=== PATIENT | female | born 1955 | race Caucasian/White ===

== ENCOUNTER 2017-03-15 20:18 | Outpatient (CLI) | payer OTHER | END 2017-03-15 20:19 | disposition critical access hospital (66) | LOC: EMS 20:18 | PROVIDERS: ATTEND Surgery | DX: R53.81 Other malaise (principal) | CPT/HCPCS: A0425; A0427 ==

== ENCOUNTER 2017-03-15 20:49 | Inpatient (IN) | payer OTHER ==
[2017-03-15] MEDS ORDERED: SODIUM CHLORIDE 0.9% 1,000 ML IV ONE ×3 (20:55→21:37)
[2017-03-15] MEDS ORDERED: ACETAMINOPHEN 325 MG TABLET PO STA (20:55)
[2017-03-15] MEDS ORDERED: ACETAMINOPHEN 325 MG TABLET PO ONE (21:09)
[2017-03-15] MEDS ORDERED: SODIUM CHLORIDE 0.9% 500 ML IV ONE (22:15)
[2017-03-15] MEDS ORDERED: ZOLPIDEM 5 MG TABLET PO PRN (22:15)
[2017-03-15] MEDS ORDERED: PROCHLORPERAZINE 10 MG/2 ML VIAL IVP PRN (22:15)
[2017-03-15] MEDS ORDERED: oxyCODONE 5 MG TABLET PO PRN ×2 (22:15)
[2017-03-15] MEDS ORDERED: IBUPROFEN 400 MG TABLET PO PRN (22:15)
[2017-03-15] MEDS ORDERED: VANCOMYCIN PER PHARMACY 1 GM in SODIUM CHLORIDE 0.9% 250 ML IV SCH (23:00)
[2017-03-16] MEDS ORDERED: VANCOMYCIN INJ 1 GM in SODIUM CHLORIDE 0.9% 250 ML IV SCH ×2
[2017-03-16] MEDS: ACETAMINOPHEN 325 MG TABLET PO PRN (00:30)
[2017-03-16] MEDS: BACLOFEN 10 MG TABLET PO SCH (00:31)
[2017-03-16] MEDS: PIPERACILLIN/TAZOBACTAM 3.375 GM in SODIUM CHLORIDE 0.9% MINIBAG 100 ML IV SCH ×5 (00:38→23:26)
[2017-03-16] MEDS: SODIUM CHLORIDE 0.9% 1,000 ML IV SCH ×3 (00:42→16:32)
[2017-03-16] MEDS ORDERED: SODIUM CHLORIDE 0.9% 1,000 ML IV ONE (02:01)
[2017-03-16] MEDS ORDERED: SODIUM CHLORIDE 0.9% 1,000 ML IV SCH (03:20)
[2017-03-16] MEDS ORDERED: ACETAMINOPHEN 325 MG TABLET PO STA (03:54)
[2017-03-16] MEDS: SODIUM CHLORIDE FLUSH 0.9% 10 ML SYRINGE IVP SCH ×3 (06:08→21:50)
[2017-03-16] MEDS: PANTOPRAZOLE 40 MG TABLET PO SCH (06:18)
[2017-03-16] MEDS: CIPROFLOXACIN 200 MG/100 ML 100 ML IV SCH ×2 (08:43→19:50)
[2017-03-16] MEDS: POLYETHYLENE GLYCOL 3350 17 GM PACKET PO SCH (08:43)
[2017-03-16] MEDS: SACCHAROMYCES BOULARDII 250 MG CAPSULE PO SCH ×2 (08:43→16:22)
[2017-03-16] MEDS ORDERED: ceFAZolin 1 GM VIAL ONE (11:12)
[2017-03-16] MEDS ORDERED: fentaNYL 100 MCG/2 ML VIAL IVP ONE (11:55)
[2017-03-16] MEDS ORDERED: ONDANSETRON 4 MG/2 ML VIAL IVP ONE (11:55)
[2017-03-16] MEDS ORDERED: GLYCOPYRROLATE 1 MG/5 ML VIAL IVP ONE (11:55)
[2017-03-16] MEDS ORDERED: ROCURONIUM 50 MG/5 ML VIAL IVP ONE (11:55)
[2017-03-16] MEDS ORDERED: LIDOCAINE-PF 2% 10 ML AMP SUBQ ONE (11:55)
[2017-03-16] MEDS ORDERED: PROPOFOL 200 MG/20 ML VIAL IVP ONE (11:55)
[2017-03-16] MEDS ORDERED: DEXAMETHASONE 4 MG/ML VIAL IVP ONE (11:55)
[2017-03-16] MEDS ORDERED: MIDAZOLAM 2 MG/2 ML VIAL IVP ONE (11:55)
[2017-03-16] MEDS ORDERED: ePHEDrine 50 MG/ML VIAL IVP ONE (11:55)
[2017-03-16] MEDS ORDERED: NEOSTIGMINE 1 MG/1 ML 10 ML MDV IVP ONE (11:55)
[2017-03-16] MEDS ORDERED: SUCCINYLCHOLINE 200 MG/10 ML VIAL IVP ONE (11:55)
[2017-03-16] MEDS ORDERED: LACTATED RINGERS 1,000 ML IV ONE ×2 (13:12)
[2017-03-16] MEDS ORDERED: BUPIVACAINE 0.5%-EPI 1:200000 PF 30 ML VIAL SUBQ ONE ×2 (13:12→14:25)
[2017-03-16] MEDS: MORPHINE 2 MG/ML SYRINGE IVP PRN (18:48)
[2017-03-17] MEDS: SODIUM CHLORIDE 0.9% 1,000 ML IV SCH (03:56)
[2017-03-17] MEDS: MORPHINE 2 MG/ML SYRINGE IVP PRN ×2 (04:55→19:39)
[2017-03-17] MEDS: SODIUM CHLORIDE FLUSH 0.9% 10 ML SYRINGE IVP SCH ×3 (05:28→20:46)
[2017-03-17] MEDS: PANTOPRAZOLE 40 MG TABLET PO SCH (05:28)
[2017-03-17] MEDS: PIPERACILLIN/TAZOBACTAM 3.375 GM in SODIUM CHLORIDE 0.9% MINIBAG 100 ML IV SCH ×3 (05:28→17:44)
[2017-03-17] MEDS: CIPROFLOXACIN 200 MG/100 ML 100 ML IV SCH ×2 (08:21→19:47)
[2017-03-17] MEDS: SACCHAROMYCES BOULARDII 250 MG CAPSULE PO SCH ×2 (08:25→17:41)
[2017-03-17] MEDS: POLYETHYLENE GLYCOL 3350 17 GM PACKET PO SCH (08:25)
[2017-03-17] MEDS: DEXTROSE 5%-0.45% NACL 1,000 ML IV SCH ×2 (08:51→20:45)
[2017-03-17] MEDS: ACETAMINOPHEN 325 MG TABLET PO PRN (10:28)
[2017-03-17] MEDS ORDERED: DEXTROSE 50% ABBOJECT 25 GM/50 ML SYRINGE ONE (10:46)
[2017-03-17] MEDS ORDERED: DEXTROSE 50% ABBOJECT 25 GM/50 ML SYRINGE IVP ONE (11:04)
[2017-03-17] MEDS: A & D OINTMENT 5 GM PACKET TOP PRN (12:12)
[2017-03-17] MEDS: ACETAMINOPHEN 1,000 MG/100 ML 100 ML IV SCH ×2 (17:10→23:08)
[2017-03-17] MEDS: BACLOFEN 10 MG TABLET PO SCH (20:45)
[2017-03-18] MEDS: PIPERACILLIN/TAZOBACTAM 2.25 GM in SODIUM CHLORIDE 0.9% MINIBAG 100 ML IV SCH ×2 (00:14→05:33)
[2017-03-18] MEDS: SODIUM CHLORIDE FLUSH 0.9% 10 ML SYRINGE IVP SCH ×3 (05:21→21:03)
[2017-03-18] MEDS: PANTOPRAZOLE 40 MG TABLET PO SCH (05:21)
[2017-03-18] MEDS: ACETAMINOPHEN 1,000 MG/100 ML 100 ML IV SCH ×3 (05:45→21:03)
[2017-03-18] MEDS: CIPROFLOXACIN 200 MG/100 ML 100 ML IV SCH (08:08)
[2017-03-18] MEDS: ONDANSETRON 4 MG/2 ML VIAL IVP PRN (08:29)
[2017-03-18] MEDS: SODIUM CHLORIDE FLUSH 0.9% 10 ML SYRINGE IVP PRN ×5 (08:37→15:49)
[2017-03-18] MEDS: CEFEPIME 1 GM in SODIUM CHLORIDE 0.9% MINIBAG 100 ML IV SCH (10:00)
[2017-03-18] MEDS: POLYETHYLENE GLYCOL 3350 17 GM PACKET PO SCH (10:05)
[2017-03-18] MEDS: SACCHAROMYCES BOULARDII 250 MG CAPSULE PO SCH ×2 (10:05→17:20)
[2017-03-18] MEDS: MORPHINE 2 MG/ML SYRINGE IVP PRN (10:48)
[2017-03-18] MEDS ORDERED: SODIUM CHLORIDE 0.9% 500 ML IV PRN (15:05)
[2017-03-18] MEDS ORDERED: SODIUM CHLORIDE FLUSH 0.9% 10 ML SYRINGE IVP PRN (15:05)
[2017-03-18] MEDS: VANCOMYCIN INJ 1 GM in SODIUM CHLORIDE 0.9% 250 ML IV SCH (15:14)
[2017-03-18] MEDS: DEXTROSE 5%-0.45% NACL 1,000 ML IV SCH ×2 (15:15→20:26)
[2017-03-18] MEDS: BACLOFEN 10 MG TABLET PO SCH (21:03)
[2017-03-19] MEDS: MORPHINE 2 MG/ML SYRINGE IVP PRN ×2 (02:05→08:17)
[2017-03-19] MEDS: ACETAMINOPHEN 1,000 MG/100 ML 100 ML IV SCH ×4 (02:55→20:41)
[2017-03-19] MEDS: DEXTROSE 5%-0.45% NACL 1,000 ML IV SCH ×3 (02:55→23:03)
[2017-03-19] MEDS: SODIUM CHLORIDE FLUSH 0.9% 10 ML SYRINGE IVP SCH ×3 (06:17→21:43)
[2017-03-19] MEDS: PANTOPRAZOLE 40 MG TABLET PO SCH (06:17)
[2017-03-19] MEDS: SACCHAROMYCES BOULARDII 250 MG CAPSULE PO SCH ×2 (08:13→17:44)
[2017-03-19] MEDS: CEFEPIME 1 GM in SODIUM CHLORIDE 0.9% MINIBAG 100 ML IV SCH (08:38)
[2017-03-19] MEDS: POLYETHYLENE GLYCOL 3350 17 GM PACKET PO SCH (14:14)
[2017-03-19] MEDS ORDERED: BACLOFEN 10 MG TABLET PO SCH (21:00)
[2017-03-19] MEDS: BACLOFEN 10 MG TABLET PO SCH (21:43)
[2017-03-20] MEDS: MORPHINE 2 MG/ML SYRINGE IVP PRN ×2 (00:48→20:00)
[2017-03-20] MEDS: ACETAMINOPHEN 1,000 MG/100 ML 100 ML IV SCH ×4 (03:46→21:07)
[2017-03-20] MEDS: SODIUM CHLORIDE FLUSH 0.9% 10 ML SYRINGE IVP SCH ×3 (06:00→21:00)
[2017-03-20] MEDS: PANTOPRAZOLE 40 MG TABLET PO SCH (06:00)
[2017-03-20] MEDS: SACCHAROMYCES BOULARDII 250 MG CAPSULE PO SCH ×2 (08:54→18:29)
[2017-03-20] MEDS: CEFEPIME 1 GM in SODIUM CHLORIDE 0.9% MINIBAG 100 ML IV SCH (09:18)
[2017-03-20] MEDS: MAGIC MOUTHWASH 120 ML BOTTLE PO PRN (10:13)
[2017-03-20] MEDS: DEXTROSE 5%-0.45% NACL 1,000 ML IV SCH ×2 (12:16→23:59)
[2017-03-20] MEDS ORDERED: MIN OIL/DIMETHICON/COCONUT OIL 92 GM TUBE TOP ONE (12:53)
[2017-03-20] MEDS: POLYETHYLENE GLYCOL 3350 17 GM PACKET PO SCH (15:43)
[2017-03-20] MEDS: VANCOMYCIN INJ 1 GM in SODIUM CHLORIDE 0.9% 250 ML IV SCH (16:27)
[2017-03-20] MEDS: ONDANSETRON 4 MG/2 ML VIAL IVP PRN (19:56)
[2017-03-20] MEDS ORDERED: MAGNESIUM SULFATE 2 GRAM 50 ML IV SCH (20:29)
[2017-03-20] MEDS: BACLOFEN 10 MG TABLET PO SCH (21:08)
[2017-03-21] MEDS: guaiFENesin/CODEINE 5 ML UDC PO PRN (02:29)
[2017-03-21] MEDS: ACETAMINOPHEN 1,000 MG/100 ML 100 ML IV SCH ×4 (02:35→20:42)
[2017-03-21] MEDS: MORPHINE 2 MG/ML SYRINGE IVP PRN ×2 (02:41→23:46)
[2017-03-21] MEDS: DEXTROSE 5%-0.45% NACL 1,000 ML IV SCH ×3 (03:47→22:53)
[2017-03-21] MEDS: SODIUM CHLORIDE FLUSH 0.9% 10 ML SYRINGE IVP SCH ×3 (07:01→21:41)
[2017-03-21] MEDS: PANTOPRAZOLE 40 MG TABLET PO SCH (07:02)
[2017-03-21] MEDS: SODIUM CHLORIDE FLUSH 0.9% 10 ML SYRINGE IVP PRN ×2 (07:02→14:47)
[2017-03-21] MEDS: ONDANSETRON 4 MG/2 ML VIAL IVP PRN ×2 (08:19→20:42)
[2017-03-21] MEDS: SACCHAROMYCES BOULARDII 250 MG CAPSULE PO SCH ×2 (08:20→18:16)
[2017-03-21] MEDS: CEFEPIME 1 GM in SODIUM CHLORIDE 0.9% MINIBAG 100 ML IV SCH (08:36)
[2017-03-21] MEDS: POLYETHYLENE GLYCOL 3350 17 GM PACKET PO SCH (08:37)
[2017-03-21] MEDS: MAGIC MOUTHWASH 120 ML BOTTLE PO PRN (13:31)
[2017-03-21] MEDS ORDERED: PROCHLORPERAZINE 10 MG/2 ML VIAL IVP PRN (13:39)
[2017-03-21] MEDS: ACYCLOVIR INJ 500 MG in SODIUM CHLORIDE 0.9% 250 ML IV SCH (15:36)
[2017-03-21] MEDS: BACLOFEN 10 MG TABLET PO SCH (21:36)
[2017-03-22] MEDS: SODIUM CHLORIDE FLUSH 0.9% 10 ML SYRINGE IVP SCH ×3 (01:11→21:09)
[2017-03-22] MEDS: ACETAMINOPHEN 1,000 MG/100 ML 100 ML IV SCH (03:08)
[2017-03-22] MEDS: MORPHINE 2 MG/ML SYRINGE IVP PRN ×2 (03:08→22:47)
[2017-03-22] MEDS: PANTOPRAZOLE 40 MG TABLET PO SCH (06:30)
[2017-03-22] MEDS: SODIUM CHLORIDE FLUSH 0.9% 10 ML SYRINGE IVP PRN ×3 (07:38→21:09)
[2017-03-22] MEDS: ONDANSETRON 4 MG/2 ML VIAL IVP PRN ×3 (07:38→17:12)
[2017-03-22] MEDS: NS W/20 MEQ KCL 1,000 ML IV SCH ×2 (08:18→23:57)
[2017-03-22] MEDS: SACCHAROMYCES BOULARDII 250 MG CAPSULE PO SCH ×2 (08:26→17:35)
[2017-03-22] MEDS: CEFEPIME 1 GM in SODIUM CHLORIDE 0.9% MINIBAG 100 ML IV SCH (08:26)
[2017-03-22] MEDS: POLYETHYLENE GLYCOL 3350 17 GM PACKET PO SCH (10:28)
[2017-03-22] MEDS: VANCOMYCIN INJ 1 GM in SODIUM CHLORIDE 0.9% 250 ML IV SCH (14:34)
[2017-03-22] MEDS: LEVOTHYROXINE 25 MCG TABLET PO SCH (14:34)
[2017-03-22] MEDS: ACYCLOVIR INJ 500 MG in SODIUM CHLORIDE 0.9% 250 ML IV SCH (16:17)
[2017-03-22] MEDS ORDERED: FLU VACCINE QS 2016-17 60 MCG/0.5 ML SYRINGE IM ONE (19:35)
[2017-03-22] MEDS: BACLOFEN 10 MG TABLET PO SCH (20:34)
[2017-03-22] MEDS: ACETAMINOPHEN 325 MG TABLET PO PRN (20:34)
[2017-03-22] MEDS: guaiFENesin/CODEINE 5 ML UDC PO PRN (21:08)
[2017-03-23] MEDS: MORPHINE 2 MG/ML SYRINGE IVP PRN (04:50)
[2017-03-23] MEDS: LEVOTHYROXINE 25 MCG TABLET PO SCH (06:48)
[2017-03-23] MEDS: PANTOPRAZOLE 40 MG TABLET PO SCH (06:48)
[2017-03-23] MEDS: SODIUM CHLORIDE FLUSH 0.9% 10 ML SYRINGE IVP SCH ×3 (06:49→22:21)
[2017-03-23] MEDS: SODIUM CHLORIDE FLUSH 0.9% 10 ML SYRINGE IVP PRN (06:49)
[2017-03-23] MEDS: POLYETHYLENE GLYCOL 3350 17 GM PACKET PO SCH (08:00)
[2017-03-23] MEDS: CEFEPIME 1 GM in SODIUM CHLORIDE 0.9% MINIBAG 100 ML IV SCH (08:14)
[2017-03-23] MEDS: MAGIC MOUTHWASH 120 ML BOTTLE PO PRN (08:54)
[2017-03-23] MEDS: ONDANSETRON 4 MG/2 ML VIAL IVP PRN ×3 (08:54→17:03)
[2017-03-23] MEDS: SACCHAROMYCES BOULARDII 250 MG CAPSULE PO SCH ×2 (08:54→16:59)
[2017-03-23] MEDS: ACETAMINOPHEN 325 MG TABLET PO PRN (10:01)
[2017-03-23] MEDS: ACYCLOVIR INJ 500 MG in SODIUM CHLORIDE 0.9% 250 ML IV SCH (16:59)
[2017-03-23] MEDS: BACLOFEN 10 MG TABLET PO SCH (22:19)
[2017-03-24] MEDS: MORPHINE 2 MG/ML SYRINGE IVP PRN (00:38)
[2017-03-24] MEDS: SODIUM CHLORIDE FLUSH 0.9% 10 ML SYRINGE IVP PRN (00:39)
[2017-03-24] MEDS: ACYCLOVIR INJ 500 MG in SODIUM CHLORIDE 0.9% 250 ML IV SCH ×2 (03:36→16:15)
[2017-03-24] MEDS: SODIUM CHLORIDE FLUSH 0.9% 10 ML SYRINGE IVP SCH ×3 (05:32→16:55)
[2017-03-24] MEDS: LEVOTHYROXINE 25 MCG TABLET PO SCH (05:46)
[2017-03-24] MEDS: PANTOPRAZOLE 40 MG TABLET PO SCH (05:46)
[2017-03-24] MEDS: ONDANSETRON 4 MG/2 ML VIAL IVP PRN ×3 (08:01→16:56)
[2017-03-24] MEDS: MAGIC MOUTHWASH 120 ML BOTTLE PO PRN (08:02)
[2017-03-24] MEDS: ACETAMINOPHEN 325 MG TABLET PO PRN (08:02)
[2017-03-24] MEDS: CEFEPIME 2 GM in SODIUM CHLORIDE 0.9% MINIBAG 100 ML IV SCH (08:51)
[2017-03-24] MEDS: SACCHAROMYCES BOULARDII 250 MG CAPSULE PO SCH ×2 (08:52→16:55)
[2017-03-24] MEDS: POLYETHYLENE GLYCOL 3350 17 GM PACKET PO SCH (08:52)
[2017-03-24] MEDS ORDERED: VANCOMYCIN INJ 1 GM in SODIUM CHLORIDE 0.9% 250 ML IV SCH (12:00)
[2017-03-24] MEDS: A & D OINTMENT 5 GM PACKET TOP PRN (12:26)
[2017-03-24] MEDS: BACLOFEN 10 MG TABLET PO SCH (21:07)
[2017-03-24] MEDS: guaiFENesin/CODEINE 5 ML UDC PO PRN (23:53)
[2017-03-25] MEDS: ACYCLOVIR INJ 500 MG in SODIUM CHLORIDE 0.9% 250 ML IV SCH (04:44)
[2017-03-25] MEDS: LEVOTHYROXINE 25 MCG TABLET PO SCH (06:17)
[2017-03-25] MEDS: PANTOPRAZOLE 40 MG TABLET PO SCH (06:17)
[2017-03-25] MEDS: SODIUM CHLORIDE FLUSH 0.9% 10 ML SYRINGE IVP SCH (06:18)
[2017-03-25] MEDS: CEFEPIME 2 GM in SODIUM CHLORIDE 0.9% MINIBAG 100 ML IV SCH (08:28)
[2017-03-25] MEDS: SACCHAROMYCES BOULARDII 250 MG CAPSULE PO SCH (08:28)
[2017-03-25] MEDS: POLYETHYLENE GLYCOL 3350 17 GM PACKET PO SCH (08:33)
[2017-03-25] MEDS ORDERED: CYANOCOBALAMIN 5000 MCG TABLET SL SCH (09:00)
[2017-03-25] MEDS ORDERED: CHOLECALCIFEROL 5,000 UNIT CAPSULE PO SCH (09:00)
== END 2017-03-25 15:36 | DRG 853 ==
PROC: 0FB04ZX Excision of Liver, Percutaneous Endoscopic Approach, Diagnostic (ICD-10-PCS; 2017-03-16)
PROC: 02HV33Z Insertion of Infusion Device into Superior Vena Cava, Percutaneous Approach (ICD-10-PCS; 2017-03-16)
PROC: 03HY32Z Insertion of Monitoring Device into Upper Artery, Percutaneous Approach (ICD-10-PCS; 2017-03-16)
PROC: 0FT44ZZ Resection of Gallbladder, Percutaneous Endoscopic Approach (ICD-10-PCS; principal; 2017-03-16 10:30)
DX: A41.51 Sepsis due to Escherichia coli [E. coli] (principal); R65.21 Severe sepsis with septic shock; J18.9 Pneumonia, unspecified organism; N17.0 Acute kidney failure with tubular necrosis; J96.91 Respiratory failure, unspecified with hypoxia; N39.0 Urinary tract infection, site not specified; K80.00 Calculus of gallbladder with acute cholecystitis without obstruction; R18.8 Other ascites; D61.818 Other pancytopenia; E87.2 Acidosis; N13.2 Hydronephrosis with renal and ureteral calculous obstruction; Y95 Nosocomial condition; E86.0 Dehydration; G89.4 Chronic pain syndrome; M16.11 Unilateral primary osteoarthritis, right hip; G35 Multiple sclerosis; N31.9 Neuromuscular dysfunction of bladder, unspecified; E03.9 Hypothyroidism, unspecified; B00.1 Herpesviral vesicular dermatitis; F32.9 Major depressive disorder, single episode, unspecified; Z16.24 Resistance to multiple antibiotics

== ENCOUNTER 2017-03-25 15:50 | Outpatient (CLI) | payer OTHER | END 2017-03-25 15:51 | DX: G35 Multiple sclerosis (principal); Z74.01 Bed confinement status | CPT/HCPCS: A0425; A0428 ==

== ENCOUNTER 2019-02-19 16:15 | Outpatient (CLI) | payer OTHER | END 2019-02-19 16:16 | disposition home or self-care (01) | LOC: RT 16:15 | PROVIDERS: ATTEND Orthopaedic Surgery | DX: Z01.818 Encounter for other preprocedural examination (principal) | CPT/HCPCS: 93005 ==

== ENCOUNTER 2019-04-19 22:14 | Outpatient (CLI) | payer OTHER | END 2019-04-19 22:15 | disposition critical access hospital (66) | LOC: EMS 22:14 | PROVIDERS: ATTEND Surgery | DX: S01.01XA Laceration without foreign body of scalp, initial encounter (principal); W18.39XA Other fall on same level, initial encounter; Y92.009 Unspecified place in unspecified non-institutional (private) residence as the place of occurrence of the external cause | CPT/HCPCS: A0425; A0429 ==

== ENCOUNTER 2019-04-19 22:49 | Emergency (ER) | payer OTHER ==
--- NOTE | 2019-04-19 23:26 | ED Physician Documentation ---
PD HPI HEAD INJURY - Stated complaint Stated Complaint: GLF, HEAD LAC - Chief complaint Chief Complaint: Laceration - History obtained from History obtained from: Patient - History of Present Illness Mechanism of head injury: Fell Where head injury occurred: Home Timing - onset: Today Location of injury: Back Associated symptoms: No: LOC, AMS, Amnesia, Nausea / vomiting, Neck pain, Paresthesias, Seizures Contributing factors: No: Anticoagulated Similar symptoms before: Has not had sx before Recently seen: Not recently seen - Additional information Additional information: This is a 64-year-old woman with a history of MS who uses a walker and today at home fell backwards on the tile floor and hit her head. Was bleeding pretty profusely so when the paramedics got there they wrapped it up. She did not pass out.The injury occurred about an hour prior to presentation and she denies headache, dizziness, vomiting or visual changes. She denied neck or back pain but then stated there was a little discomfort between the right side of her neck and her right shoulder. Denies pain radiating down the arms or legs. She takes baclofen for MS but no other prescription medications and is not on a blood thinner.She had no seizure activity and no urinary or Review of Systems Eyes: denies: Loss of vision Ears: denies: Loss of hearing Cardiac: denies: Palpitations GI: denies: Nausea, Vomiting, Diarrhea : denies: Incontinent Skin: reports: Laceration (s) (To the back of the scalp) Musculoskeletal: denies: Neck pain, Back pain Neurologic: reports: Other (She has pre-existing lower extremity weakness due to her MS. Nothing acute.) PD PAST MEDICAL HISTORY - Past Medical History Past Medical History: Yes Cardiovascular: None Respiratory: None Neuro: Multiple sclerosis Endocrine/Autoimmune: None GI: None : Retention HEENT: None Psych: Depression Musculoskeletal: Osteoarthritis, Fatigue, Chronic back pain Derm: None Other Past Medical History: MS - Past Surgical History Past Surgical History: No - Present Medications Home Medications: Ambulatory Orders Medication Instructions Recorded Confirmed RX: Baclofen 10 mg PO QPM 03/16/17 03/16/17 Cholecalciferol [Vitamin D3] 5,000 unit PO DAILY 03/24/17 03/24/17 Cyanocobalamin (Vitamin B-12) 5,000 mcg SL DAILY 05/16/17 05/16/17 [Vitamin B-12] - Allergies Allergies/Adverse Reactions: Allergies Allergy/AdvReac Type Severity Reaction Status Date / Time No Known Drug Allergies Allergy Verified 04/19/19 22:54 - Social History Does the pt smoke?: No Smoking Status: Never smoker Does the pt drink ETOH?: No Does the pt have substance abuse?: No - Immunizations Immunizations are current?: Yes - POLST Patient has POLST: No POLST Status: Full Code PD ED PE NORMAL - Vitals Vital signs reviewed: Yes - General General: Alert and oriented X 3, No acute distress, Well developed/nourished - HEENT HEENT: PERRL, EOMI, Moist mucous membranes, Other (There is a hematoma over the right occipital scalp with a laceration measuring less than a centimeter overlying it. 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, No sensory deficit, Normal sp eech, Other (Pre-existing weakness in the right and left lower extremity she is unable to lift them off the bed but has 5 out of 5 ankle dorsiflexion bilaterally.) - Psych Psych: Normal mood, Normal affect Results - Vitals Vitals: Vital Signs - 24 hr 04/19/19 04/19/19 22:53 23:39 Temperature 36.5 C Heart Rate 62 72 Respiratory 18 16 Rate Blood Pressure 136/92 H 124/73 O2 Saturation 97 100 Oxygen O2 Source Room air Procedures - Laceration (location) Scalp Length in cm: 1 Wound type: Linear (This was a crush injury with the tearing type laceration over hematoma.), Clean Anesthesia: OTH (No anesthesia) Skin layer closure: [place] (1 staple) Other: Patient tolerated well, No complications PD MEDICAL DECISION MAKING - ED course Complexity details: d/w patient, d/w family ED course: Patient has leg weakness and typically uses a walker. She fell back today and hit her head. She did not pass out and is not on blood thinners. She is at her neurologic baseline currently and I did not feel that a head CT was necessary. She did not have bony tenderness with palpation to the neck. The laceration was repaired with one staple and she was instructed on wound care. Braydon should be removed in 5 to 7 days follow-up with her primary provider. Family was provided closed head injury instructions. Departure - Departure Disposition: 01 Home, Self Care Clinical Impression: Laceration, Traumatic hematoma of scalp Condition: Good Instructions: ED Head Injury Closed, ED Laceration Scalp Stitch Or Stap Follow-Up: Vanesa Chang ARNP [Primary Care Provider] - Comments: May take Tylenol for pain. You may wash the wound tomorrow just be careful that you do not pull the staple out. The staple can come out in 5 to 6 days. Watch for signs of closed head injury and return if signs or symptoms including repeated vomiting, dizziness, not acting right or other problems arise. Discharge Date/Time: 04/19/19 23:54
[2019-04-19] MEDS ORDERED: TETANUS/DIPHTHERIA/PERTUSSIS 0.5 ML SYRINGE IM ONE (23:40)
[2019-04-19 23:41] VITALS: BP 124/73
[2019-04-19] MEDS ORDERED: BACITRACIN OINT TOP STA (23:41)
== END 2019-04-19 23:54 | disposition home or self-care (01) ==
LOC: EDUNIT# → ED 22:49
DX: S01.01XA Laceration without foreign body of scalp, initial encounter (principal); S00.03XA Contusion of scalp, initial encounter; M54.6 Pain in thoracic spine; W01.198A Fall on same level from slipping, tripping and stumbling with subsequent striking against other object, initial encounter; Y93.01 Activity, walking, marching and hiking; Y92.009 Unspecified place in unspecified non-institutional (private) residence as the place of occurrence of the external cause; Z23 Encounter for immunization; G35 Multiple sclerosis
CPT/HCPCS: 12001; 90471; 90715; 99283; A9270

== ENCOUNTER 2023-01-22 14:13 | Outpatient (CLI) | payer OTHER ==
--- NOTE | 2023-01-22 20:19 | DEXA Report ---
PROCEDURE: Dexa Spine and/or Hip INDICATIONS: POST MENOPAUSAL TECHNIQUE: Dual energy x-ray absorptiometry (DXA) was performed on a [employer] System. Regions measur ed are the AP Spine, femoral neck, and if needed forearm. COMPARISON: None. FINDINGS: Lumbar Spine: Bone Mineral Density 1.368 g/cm/cm,T score 1.6. Left Femoral Neck: Bone Mineral Density 0.680 g/cm/cm, T score -2.6. Left Hip: Bone Mineral Density 0.638 g/cm/cm,T score -2.9. (T score greater or equal to -1.0: NORMAL) (T score from -1.1 to -2.4: OSTEOPENIA) (T score less than or equal to -2.5 to: OSTEOPOROSIS) Impression: Osteoporosis. Patients with diagnosis of osteoporosis or osteopenia should have regular bone mineral density assess ment. For those eligible for Medicare, routine testing is allowed once every 2 years. Testing frequ ency can be increased for patients who have rapidly progressing disease or for those who are receivin g medical therapy to restore bone mass. Reviewed by: Jhonny Davalos MD on 01/22/2023 8:18 PM PDT Approved by: Jhonny Davalos MD on 01/22/2023 8:18 PM PDT Station ID: [id number]
== END 2023-01-22 14:14 | disposition home or self-care (01) ==
LOC: DI 14:13
PROVIDERS: ATTEND Registered Nurse
DX: Z78.0 Asymptomatic menopausal state (principal); M81.0 Age-related osteoporosis without current pathological fracture

== ENCOUNTER 2023-01-22 14:15 | Outpatient (CLI) | payer OTHER ==
--- NOTE | 2023-01-23 10:42 | Mammography Report ---
BILATERAL DIGITAL SCREENING MAMMOGRAM: 01/22/2023 CLINICAL: Routine screening. Baseline exam. No prior exams were available for comparison. Both breasts are heterogeneously dense, which may obscure small masses (category c / 51-75% glandular tissue). No significant masses, calcifications, or other findings are seen in either breast. IMPRESSION: NEGATIVE There is no mammographic evidence of malignancy. A 1 year screening mammogram is recommended. Based on the Tyrer Cuzick model (a risk assessment model) the patients lifetime risk is 10.4% and he r 10 year risk is 6.2%. According to the ACR, ACS, and NCCN guidelines, an annual breast MRI exam liana ng with mammogram is recommended if the patients lifetime risk is 20% or greater. This exam was interpreted at Station ID: [id number]. NOTE: For mammograms, a report in lay terms will be sent to the patient. Approximately 15% of breast malignancies will not be visualized mammographically. In the management of a palpable breast mass, a negative mammogram must not discourage biopsy of a clinically suspicious lesion. Electronically Signed By: Jak Holly M.D. [facility] [place]:01/22/2023 16:34:08 letter sent: No_Letter ACR BI-RADS Category 1: Negative 3341F PARENCHYMAL PATTERN: (D) - The breast(s) demonstrate(s) heterogeneously dense fibroglandular parkirsten munoz. BI-RADS CATEGORY: (1) - 1 Mammogram [id number] 1 year screening LATERALITY: (B)
== END 2023-01-22 14:16 | disposition home or self-care (01) ==
LOC: DI 14:15
PROVIDERS: ATTEND Registered Nurse
DX: Z12.31 Encounter for screening mammogram for malignant neoplasm of breast (principal)

== ENCOUNTER 2024-06-22 15:03 | Outpatient (CLI) | payer OTHER ==
--- NOTE | 2024-06-23 16:57 | DEXA Report ---
PROCEDURE: Dexa Spine and/or Hip INDICATIONS: OSTEOPOROSIS TECHNIQUE: Dual energy x-ray absorptiometry (DXA) was performed on a [employer] System. Regions measur ed are the AP Spine, femoral neck, and if needed forearm. COMPARISON: DEXA on January 22, 2023 FINDINGS: Lumbar Spine: Bone Mineral Density: 1.37 to g/cm/cm,T score: 1.6. There has been no statistically significant martinez ge in bone mineral density since the prior study. Left Femoral Neck: Bone Mineral Density: 0.679 g/cm/cm, T score: -2.6. Left Hip: Bone Mineral Density: 0.606 g/cm/cm,T score: -3.2. There has been no statistically significant change in bone mineral density since the prior study. (T score greater or equal to -1.0: NORMAL) (T score from -1.1 to -2.4: OSTEOPENIA) (T score less than or equal to -2.5 to: OSTEOPOROSIS) Impression: By WHO criteria, this patient has osteoporosis. No statistical interval change in bone mineral density of the lumbar spine. No statistical interval c hange in bone mineral density of the hip. Patients with diagnosis of osteoporosis or osteopenia should have regular bone mineral density assess ment. For those eligible for Medicare, routine testing is allowed once every 2 years. Testing frequ ency can be increased for patients who have rapidly progressing disease or for those who are receivin g medical therapy to restore bone mass. Reviewed by: Juan Etienne MD on 06/23/2024 4:55 PM PDT Approved by: Juan Etienne MD on 06/23/2024 4:55 PM PDT Station ID: [id number]
== END 2024-06-22 15:04 | disposition home or self-care (01) ==
LOC: DI 15:03
PROVIDERS: ATTEND Registered Nurse
DX: M81.0 Age-related osteoporosis without current pathological fracture (principal)